=== PATIENT | male | born 2000 | race Caucasian/White ===

== ENCOUNTER 2022-05-31 16:25 | Outpatient (CLI) | payer OTHER, SELFPAY | END 2022-05-31 16:26 | disposition home or self-care (01) | LOC: NFLDREF 16:48 | PROVIDERS: PCP Family Medicine; Visit Provider Family Medicine | DX: I48.91 Unspecified atrial fibrillation (principal) | CPT/HCPCS: 84443 ==

== ENCOUNTER 2022-06-15 14:54 | Outpatient (CLI) | payer OTHER, SELFPAY | END 2022-06-15 14:55 | disposition home or self-care (01) | PROVIDERS: PCP Family Medicine; Visit Provider Family Medicine | DX: I48.91 Unspecified atrial fibrillation (principal) | CPT/HCPCS: 93306 ==

== ENCOUNTER 2024-10-17 12:53 | Outpatient (CLI) | payer OTHER, SELFPAY | END 2024-10-17 12:54 | disposition home or self-care (01) | PROVIDERS: PCP Family Medicine; Visit Provider Family Medicine | DX: I48.91 Unspecified atrial fibrillation (principal) | CPT/HCPCS: 93306 ==

== ENCOUNTER 2025-02-17 07:56 | Outpatient (CLI) | payer OTHER, SELFPAY ==
--- NOTE | 2025-02-17 09:02 | P.ANES_ITS ---
Anesthesia Charges Start Date/Time Anesthesia Start Date: 02/17/25 Anesthesia Start Time: 08:42 Stop Date/Time Anesthesia Stop Date: 02/17/25 Anesthesia Stop Time: 09:02 Coding CPT Codes CPT Codes: ANES UPR GI NDSC PX NOS - 48081 ([id number]) P2 - PATIENT W/MILD SYST DISEASE, QX - FABRICATION ENGINEER SVC W/ MD MED DIRECTION, QK - OUTSOLE ROUNDER 2-4 CNCRNT ANES PROC
--- NOTE | 2025-02-17 09:02 | W.ANESCHARGE ---
Anesthesia Charges Start Date/Time Anesthesia Start Date: 02/17/25 Anesthesia Start Time: 08:42 Stop Date/Time Anesthesia Stop Date: 02/17/25 Anesthesia Stop Time: 09:02 Coding CPT Codes CPT Codes: ANES UPR GI NDSC PX NOS - 96312 ([id number]) P2 - PATIENT W/MILD SYST DISEASE, QX - PHYSICIAN NON INVASIVE CARDIOLOGIST SVC W/ MD MED DIRECTION, QK - [place] WRAPPER MAKER 2-4 CNCRNT ANES PROC
--- NOTE | 2025-02-17 10:07 | P.ANES_ITS ---
Anesthesia Charges Start Date/Time Anesthesia Start Date: 02/17/25 Anesthesia Start Time: 08:42 Stop Date/Time Anesthesia Stop Date: 02/17/25 Anesthesia Stop Time: 09:02 Coding CPT Codes CPT Codes: ANES UPR GI NDSC PX NOS - 49006 ([id number]) P1 - NORMAL HEALTHY PATIENT, QK - STAFF SONOGRAPHER 2-4 CNCRNT ANES PROC, QX - PNEUMATIC DRUM SANDER SVLester W/ MED DIRECTION
--- NOTE | 2025-02-17 10:07 | W.ANESCHARGE ---
Anesthesia Charges Start Date/Time Anesthesia Start Date: 02/17/25 Anesthesia Start Time: 08:42 Stop Date/Time Anesthesia Stop Date: 02/17/25 Anesthesia Stop Time: 09:02 Coding CPT Codes CPT Codes: ANES UPR GI NDSC PX NOS - 30752 ([id number]) P1 - NORMAL HEALTHY PATIENT, QK - FEEDER TENDER 2-4 CNCRNT ANES PROC, QX - PBX OPERATOR SVLester W/ MED DIRECTION
== END 2025-02-17 07:57 | disposition home or self-care (01) ==
LOC: OP CLINIC 07:57
PROVIDERS: PCP Family Medicine; Visit Provider Surgery
DX: K21.00 Gastro-esophageal reflux disease with esophagitis, without bleeding (principal); R10.12 Left upper quadrant pain
CPT/HCPCS: 00731; 43239; 88305; J2704; J3490

== ENCOUNTER 2025-03-16 12:50 | Outpatient (CLI) | payer OTHER, SELFPAY ==
--- NOTE | 2025-03-16 13:00 | CRLHL7_ITS ---
For Patients: As a result of the Century Cures Act, medical imaging exams and procedure reports are released immediately into your electronic medical record. You may view this report before your referring provider. If you have questions, please contact your health care provider. Indication: Chronic sinusitis, deviated septum, loss of taste, left-side of nasal passage feels congested Technique: Noncontrast CT of the paranasal sinuses. Coronal and sagittal reformats. Bone and soft tissue algorithms. Comparison: None Findings: Frontal sinuses: Minimal mucosal thickening/secretions at the inferior left frontal sinus. Clear right frontal sinus and bilateral frontal recesses. Ethmoid air cells: Minimal mucosal thickening/secretions, left posterior ethmoid air cell, remaining ethmoid air cells grossly clear. Olfactory fossa are symmetric posteriorly, asymmetric anteriorly left significantly deeper than right. The anterior ethmoidal arteries traverse the air cells on both sides. Sphenoid sinuses: The sphenoid sinuses and sphenoethmoidal recesses are clear. No optic canal or carotid canal dehiscence. Maxillary sinuses: Tiny mucous retention cyst and minor mucosal thickening at the left maxillary sinus. Clear right maxillary sinus and bilateral ostiomeatal units. Nasal cavity: Midline nasal septum. Smooth hypertrophy of the left inferior and left middle turbinates narrowing but not obstructing the nasal airway. No nasal cavity masses. Other structures: No suspicious osseous lesions. No concerning dental disease.. Unremarkable temporomandibular joints. No abnormal mastoid or middle ear opacification. Orbits and intracranial structures are unremarkable for technique. IMPRESSION: 1. Smooth hypertrophy of the left-sided inferior and middle turbinates, narrowing but not obstructing the nasal meatus. Midline nasal septum. 2. Minimal mucosal thickening/secretions as detailed. Please note that all CT scans at this facility use dose modulation, iterative reconstruction, and/or weight-based dosing when appropriate to reduce radiation dose to as low as reasonably achievable. Dictated by Tameka Garcia MD @ 03/16/2025 1:58:44 PM (Electronically Signed)
--- OUTSIDE RECORDS SUMMARY | 2025-03-17 00:32 | XMS_ITS | Continuity of Care Document ---
Author Name [facility] Organization [facility] Care Team Providers Care Manager Government Name Role Phone [facility] Unavailable Unavailable Problems Combined list of problems from Department of Defense and Veterans Affairs facilities. It does not include entries that were removed or entered in error. Problem Status Onset Date Problem Type Date of Resolution Comments Source ATTENTION-DEFICIT HYPERACTIVITY DISORDER Active Condition [facility] feared medical condition not demonstrated Active Condition DoD decreased concentrating ability Active Condition DoD Observation For Suspected Condition Inactive Condition DoD SCOLIOSIS Active Condition DoD visit for: examination for sports competition Inactive Condition [facility] visit for: issue repeat prescription for medication Inactive Condition [facility] visit for: administrative purpose Inactive Condition [facility] Vaccines Prophylactic Need Against Influenza Inactive Condition [facility] PHARYNGITIS STREPTOCOCCUS, GROUP A: BETA HEMOLYTIC Inactive Condition [facility] ALLERGIC RHINITIS Active Condition [facility] New Patient Age 5-11 School / Camp Physical Active Condition [facility] Inquiry And Counseling: Medication Admin And Compliance Inactive Condition RECONCILED DoD XEROSIS CUTIS Active Condition [facility] Patient Counseling: Inactive Condition [facility] UPPER RESPIRATORY INFECTION Inactive Condition [facility] cough Inactive Condition DoD PHARYNGITIS ACUTE Inactive Condition ra pid strep throat is negative. informed father of result. [facility] Preventive Medicine Established Patient Checkup Child 1-4 Inactive Condition [facility] UPPER RESPIRATORY INFECTION ACUTE Inactive Condition with mild bi lat otitis - mild condition. observation and supportive care advised. return if more symptoms. [facility] fever [as symptom] Inactive Condition Do D Medications Combined list of outpatient medications from Department of Defense and Veterans Affairs facilities.Medications provided include 1) outpatient medications from the last 15 months, and 2) patient-reported medications. Medication Details Route Status Patient Instructions Prescription Expires Prescription Number Last Dispense Date Ordering Provider Order Date Order Qty Source cefuroxime 500 mg oral tablet 0 total refill(s ) Ordered 2019 No Facilit y Access methylpheni date 5 mg oral tablet methylph enidate 5 mg oral tablet Start Date: 04/08/20 Status: Ordered Repeat number: 1 Ordered 2019 No Facilit y Access methylpheni date 5 mg oral tablet methylph enidate 5 mg oral tablet Start Date: 04/15/20 Status: Ordered Repeat number: 1 Ordered 2019 No Facilit y Access methylpheni date 54 mg/24 hr oral tablet, extended release methylph enidate 54 mg/24 hr oral tablet, extended release Start Date: 04/08/20 Status: Ordered Repeat number: 1 Ordered 2019 No Facilit y Access methylpheni date 54 mg/24 hr oral tablet, extended release methylph enidate 54 mg/24 hr oral tablet, extended release Start Date: 04/15/20 Status: Ordered Repeat number: 1 Ordered 2019 No Facilit y Access methylpheni date 54 mg/24 hr oral tablet, extended release methylph enidate 54 mg/24 hr oral tablet, extended release Start Date: 12/18/19 Status: Ordered Repeat number: 1 Ordered 2019 No Facilit y Access methylpheni date 54 mg/24 hr oral tablet, extended release methylph enidate 54 mg/24 hr oral tablet, extended release Start Date: 07/15/19 Status: Ordered Repeat number: 1 Ordered 2019 No Facilit y Access METHYLPHENI DATE ER (methylphen idate HCl), 54 MG, TAB ER 24, ORAL, [employer], 100 ea. BOTTLE Active [id number] 2023 90 Pharmac y Data Transac tion Service Facilit y METHYLPHENI DATE HCL (methylphen idate HCl), 10 MG, TABLET, ORAL, [facility] [facility], 100 ea. BOTTLE Active [id number] 2023 90 Pharmac y Data Transac tion Service Facilit y METOPROLOL SUCCINATE (metoprolol succinate), 25 MG, TAB ER 24H, ORAL, [employer] [facility], 1000 ea. BOTTLE Active [id number] 4 2023 90 Pharmac y Data Transac tion Service Facilit y predniSONE 10 mg oral tablet predniSO NE 10 mg oral tablet Start Date: 04/28/20 Status: Ordered Repeat number: 1 Ordered 2019 No Facilit y Access Allergies, Adverse Reactions, Alerts Combined list of allergies from Department of Defense and Veterans Affairs facilities. It does not include entries that were removed or entered in error. Substance Category Reaction Severity Reaction type Status Date Reported Comments Source No Known Allergies Drug allergy (disorder) active 08/30/2007 [facility] Immunizations Combined list of available immunizations from the Department of Defense and Veterans Affairs facilities. Immunization Series Date Given Administered By Site Reaction Lot Number CVX Code Drug Delivery Helper Status Comments Source COVID-19, mRNA, LNP-S, PF, 100 mcg or 50 mcg dose 2020 MILENA, () Not Given COVID-19, mRNA, LNP-S, PF, 100 mcg or 50 mcg dose DoD COVID-19, mRNA, LNP-S, PF, 30 mcg/0.3 mL dose 2020 KASEY [employer] (PFR) Not Given COVID-19, mRNA, LNP-S, PF, 30 mcg/0.3 mL dose DoD Human Papillomaviru s,quadrivalen t(HPV4) 2014 Renee trimble Arm [id number] [employer] complet ed Human Papilloma virus,lizz drivalent (HPV4) 11/03/14 Given Ambulat ory Pharmac y influenza, live, intranasal,qu adrivalent 2014 [id number] [employer] comple t ed influenza , live, intranasa l,quadriv alent 11/03/14 Given Ambulat ory Pharmac y human papilloma virus vaccine, quadrivalent 1 2014 Unknown, Provider [id number] Merck (MSD) complet ed human papilloma virus vaccine, quadrival ent DoD influenza, live, intranasal, quadrivalent 1 2014 Unknown, Provider [id number] 149 [employer]. (MED) complet ed influenza , live, intranasa l, quadrival ent DoD tetanus, diphtheria, acellular pertu is 2013 TRANSCR IBED 115 GlaxoSmithKli ne complet ed tetanus, diphtheri a, acellular pertussis 10/30/13 Given Ambulat ory Pharmac y Human Papillomaviru s,quadrivalen t(HPV4) 2013 TRANSCR IBED 62 complet ed Human Papilloma virus,lizz drivalent (HPV4) 10/30/13 Given Ambulat ory Pharmac y meningococcal A,C,Y,W-135 (MCV4P) 2013 TRANSCR IBED 114 complet ed meningoco ccal A,C,Y,W-1 35 (MCV4P) 10/30/13 Given Ambulat ory Pharmac y human papilloma virus vaccine, quadrivalent 1 2013 Unknown, Provider 62 Transcribed (TRS) complet ed human papilloma virus vaccine, quadrival ent DoD meningococcal polysaccharid e (groups A, C, Y and W-135) diphtheria toxoid conjugate vaccine (MCV4P) 1 2013 Unknown, Provider 114 Transcribed (TRS) complet ed meningoco ccal polysacch aride (groups A, C, Y and W-135) diphtheri a toxoid conjugate vaccine (MCV4P) DoD tetanus toxoid, reduced diphtheria toxoid, and acellular pertu is vaccine, adsorbed 5 2013 Unknown, Provider 115 [facility] (SKB) complet ed tetanus toxoid, reduced diphtheri a toxoid, and acellular pertussis vaccine, adsorbed DoD influenza virus vaccine, live 2009 [id number] 111 [employer] comple t ed influenza virus vaccine, live 08/10/10 Given Ambulat ory Pharmac y influenza virus vaccine, live, attenuated, for intranasal use 2009 Unknown, Provider [id number] 111 [employer] (MED) complet ed influenza virus vaccine, live, attenuate d, for intranasa l use DoD Novel influenza-H1N 1-09, injectable 2009 zzLef t Arm [id number] 1 127 Novartis [employer] ls complet ed Novel influenza -[id number], injectabl e 09/27/09 Given Ambulat ory Pharmac y Novel influenza-H1N 1-09, injectable 1 2009 Unknown, Provider [id number] 1 127 Novartis Pharm[employer]ica l Francois. (NOV) complet ed Novel influenza -[id number], injectabl e DoD influenza virus vaccine,split 2008 zzRig ht Arm [id number] 15 sanofi pasteur complet ed influenza virus vaccine,s plit 09/14/09 Given Ambulat ory Pharmac y influenza virus vaccine, split virus (incl. purified surface antigen)-reti red CODE 1 2008 Unknown, Provider [id number] 15 Sanofi Pasteur ([facility]) complet ed influenza virus vaccine, split virus (incl. purified surface antigen)- retired CODE DoD Novel influenza-H1N 1-09, injectable 2008 127 complet ed Novel influenza -[id number], injectabl e 08/27/09 Given Ambulat ory Pharmac y Novel influenza-H1N 1-09, injectable 1 2008 Unknown, Provider 127 Transcribed (TRS) complet ed Novel influenza -[id number], injectabl e DoD Hep A, pediatric, unspecified formul 2008 zzLef t Thigh [id number] 31 Gl[employer]oSmithK[employer] ne complet ed Hep A, pediatric , unspecifi ed formul 11/27/08 Given Ambulat ory Pharmac y influenza virus vaccine,split 2008 zJabari ht Arm [id number] 15 sanofi pasteur complet ed influenza virus vaccine,s plit 11/27/08 Given Ambulat ory Pharmac y influenza virus vaccine, split virus (incl. purified surface antigen)-reti red CODE 1 2008 Unknown, Provider [id number] 15 Sanofi Pasteur (PMC) complet ed influenza virus vaccine, split virus (incl. purified surface antigen)- retired CODE DoD hepatitis A vaccine, pediatric dosage, unspecified formulation 2 2008 Unknown, Provider [id number] 31 [employer] (SKB) complet ed hepatitis A vaccine, pediatric dosage, unspecifi ed formulati on DoD DTaP-poliovir us vaccine, inactivated 2008 zzLef t Arm [id number] 130 GlaxoSmithKli ne complet ed DTaP-sukhwinder ovirus vaccine, inactivat ed 10/06/08 Given Ambulat ory Pharmac y varicella virus vaccine 2008 zzLef t Arm [id number] 21 Merck & Company Inc complet ed varicella virus vaccine 10/06/08 Given Ambulat ory Pharmac y influenza virus vaccine, live 2008 [id number] 111 [employer] comple t ed influenza virus vaccine, live 10/06/08 Given Ambulat ory Pharmac y measles/mumps /rubella virus vaccine 2008 zzRig ht Arm [id number] 03 Merck & Company Inc complet ed measles/m umps/rube lla virus vaccine 10/06/08 Given Ambulat ory Pharmac y tuberculin purified protein derivative 2008 zzLef t Arm [id number] 96 sanofi pasteur complet ed Patient Tolerance : Negative Ambulat ory Pharmac y measles, mumps and rubella virus vaccine 2 2008 Unknown, Provider [id number] 03 Merck (MSD) complet ed measles, mumps and rubella virus vaccine DoD varicella virus vaccine 2 2008 Unknown, Provider [id number] 21 Merck (MSD) complet ed varicella virus vaccine DoD tuberculin skin test; purified protein derivative solution, intradermal 1 2008 Unknown, Provider [id number] 96 Sanofi Pasteur (PMC) complet ed tuberculi n skin test; purified protein derivativ e solution, intraderm al DoD influenza virus vaccine, live, attenuated, for intranasal use 1 2008 Unknown, Provider [id number] 111 [employer]. (MED) complet ed influenza virus vaccine, live, attenuate d, for intranasa l use DoD Diphtheria, tetanus toxoids and acellular pertu is vaccine, and poliovirus vaccine, inactivated 5 2008 Unknown, Provider [id number] 130 [facility] ([facility] complet ed Diphtheri a, tetanus toxoids and acellular pertussis vaccine, and polioviru s vaccine, inactivat ed DoD Hep A, pediatric, unspecified formul 2005 zzRig ht Thigh [id number] 31 Gl[employer]SmithK[employer] complet ed Hep A, pediatric , unspecifi ed formul 04/18/06 Given Ambulat ory Pharmac y hepatitis A vaccine, pediatric dosage, unspecified formulation 1 2005 Unknown, Provider [id number] 31 [employer] ([place]B) complet ed hepatitis A vaccine, pediatric dosage, unspecifi ed formulati on DoD DTaP 2003 zzLef t Arm [id number] 20 Gl[employer]SmithK[employer] complet ed DTaP 04/27/04 Given Ambulat ory Pharmac y diphtheria, tetanus toxoids and acellular pertu is vaccine 4 2003 Unknown, Provider [id number] 20 [employer] ([place]B) complet ed diphtheri a, tetanus toxoids and acellular pertussis vaccine DoD influenza virus vaccine,split 2003 zzRig ht Thigh [id number] 15 sanofi pasteur complet ed influenza virus vaccine,s plit 10/30/03 Given Ambulat ory Pharmac y haemophilus b-hepatitis B vaccine 2003 zzRig ht Thigh [id number] 51 Merck & Company Inc complet ed haemophil us b-hepatit is B vaccine 10/30/03 Given Ambulat ory Pharmac y varicella virus vaccine 2003 zzLef t Thigh [id number] 21 Merck & [employer] Inc complet ed varicella virus vaccine 10/30/03 Given Ambulat ory Pharmac y measles/mumps /rubella virus vaccine 2003 zzLef t Thigh [id number] 03 Merck & [employer] Inc complet ed measles/m umps/rube lla virus vaccine 10/30/03 Given Ambulat ory Pharmac y measles, mumps and rubella virus vaccine 1 2003 Unknown, Provider [id number] 03 Merck (MSD) complet ed measles, mumps and rubella virus vaccine DoD influenza virus vaccine, split virus (incl. purified surface antigen)-reti red CODE 1 2003 Unknown, Provider [id number] 15 Sanofi Pasteur ([facility]) complet ed influenza virus vaccine, split virus (incl. purified surface antigen)- retired CODE DoD varicella virus vaccine 1 2003 Unknown, Provider [id number] 21 Merck (MSD) complet ed varicella virus vaccine DoD Haemophilus influenzae type b conjugate and Hepatitis B vaccine 1 2003 Unknown, Provider [id number] 51 Merck (MSD) complet ed Haemophil us influenza e type b conjugate and Hepatitis B vaccine DoD pneumococcal 7-valent vaccine 2002 zzLef t Arm [id number] 100 [employer] complet ed pneumococ beltran 7-valent vaccine 07/10/03 Given Ambulat ory Pharmac y pneumococcal conjugate vaccine, 7 valent 3 2002 Unknown, Provider [id number] 100 VaalessioRafael ([facility]) complet ed pneumococ beltran conjugate vaccine, 7 valent DoD DTaP 2002 zzLef t Thigh [id number] 20 sanofi pasteur complet ed DTaP 04/22/03 Given Ambulat ory Pharmac y poliovirus vaccine, inactivated 2002 zzLef t Arm [id number] 10 sanofi pasteur complet ed polioviru s vaccine, inactivat ed 04/22/03 Given Ambulat ory Pharmac y pneumococcal 7-valent vaccine 2002 zzLef t Arm [id number] 100 [employer] complet ed pneumococ beltran 7-valent vaccine 04/22/03 Given Ambulat ory Pharmac y poliovirus vaccine, inactivated 1 2002 Unknown, Provider [id number] 10 Sanofi Pasteur ([facility]) complet ed polioviru s vaccine, inactivat ed DoD diphtheria, tetanus toxoids and acellular pertu is vaccine 3 2002 Unknown, Provider [id number] 20 Sanofi Pasteur (PMC) complet ed diphtheri a, tetanus toxoids and acellular pertussis vaccine DoD pneumococcal conjugate vaccine, 7 valent 2 2002 Unknown, Provider [id number] 100 Abelardo ([facility]) complet ed pneumococ beltran conjugate vaccine, 7 valent DoD haemophilus b-hepatitis B vaccine 2002 zRig Thigh [id number] 51 Merck & Company Inc complet ed haemophil us b-hepatit is B vaccine 02/25/03 Given Ambulat ory Pharmac y poliovirus vaccine, inactivated 2002 zzLef t Thigh [id number] 10 sanofi pasteur complet ed polioviru s vaccine, inactivat ed 02/25/03 Given Ambulat ory Pharmac y pneumococcal 7-valent vaccine [facility] [id number] complet ed pneumococ beltran 7-valent vaccine 02/25/03 Given Ambulat ory Pharmac y [facility]P [facility] [id number] 20 sanofi pasteur complet ed DTaP 02/25/03 Given Ambulat ory Pharmac y poliovirus vaccine, inactivated 1 2002 Unknown, Provider [id number] 10 Sanofi Pasteur (PMC) complet ed polioviru s vaccine, inactivat ed DoD diphtheria, tetanus toxoids and acellular pertu is vaccine 2 2002 Unknown, Provider [id number] 20 Sanofi Pasteur (PMC) complet ed diphtheri a, tetanus toxoids and acellular pertussis vaccine DoD Haemophilus influenzae type b conjugate and Hepatitis B vaccine 1 2002 Unknown, Provider [id number] 51 Merck (MSD) complet ed Haemophil us influenza e type b conjugate and Hepatitis B vaccine DoD pneumococcal conjugate vaccine, 7 valent 1 2002 Unknown, Provider [id number] 100 Abelardo ([facility]) complet ed pneumococ beltran conjugate vaccine, 7 valent DoD haemophilus b-hepatitis B vaccine 2002 zzLef t Arm [id number] 51 Merck & Company Inc complet ed haemophil us b-hepatit is B vaccine 02 Given Ambulat ory Pharmac y poliovirus vaccine, inactivated 2002 zzLef t Arm [id number] 10 sanofi pasteur complet ed polioviru s vaccine, inactivat ed 02 Given Ambulat ory Pharmac y DTaP 2002 zzLef t Thigh [id number] 20 GlaxoSmithKli ne complet ed DTaP 02 Given Ambulat ory Pharmac y poliovirus vaccine, inactivated 1 2002 Unknown, Provider [id number] 10 Sanofi Pasteur (PMC) complet ed polioviru s vaccine, inactivat ed DoD diphtheria, tetanus toxoids and acellular pertu is vaccine 1 2002 Unknown, Provider [id number] 20 [employer]Kline ([facility]) complet ed diphtheri a, tetanus toxoids and acellular pertussis vaccine DoD Haemophilus influenzae type b conjugate and Hepatitis B vaccine 1 2002 Unknown, Provider [id number] 51 Merck (MSD) complet ed Haemophil us influenza e type b conjugate and Hepatitis B vaccine DoD Encounters Combined list of: 1) Encounters from Department of Veterans Affairs facilities going backup to the last 18 months, not all [place] inpatient encounters are included; 2) Encounters from the Department of Defense facilities going backup to 280 months. Location Location Details Encounter Type Encounter Number Reason For Visit Attending Provider ADM Date DC Date Status Disposition Source [facility] Pediatric s) OUTPATIENT [id number] cold,co ugh JESSICA SOSA 09/19 Released w/o Limitations [facility] Ped[facility] ics) [facility] Pediatric s) OUTPATIENT [id number] well child JESSICA SOSA 11/30 Released w/o Limitations [facility] Pediatr ics) Mejia Varela [facility] [place] [employer]) OUTPATIENT [id number] new pt to area. cough x 2 weeks with on and off fevers. ROSALBA LIMON 03/29 Released w/o Limitations Mejia Cavazos [facility]( Pediatr ics [employer] ) Mejia Varela [facility] [place] [employer]) OUTPATIENT [id number] sore throat/ cough x1wk;fe shen this am;give n Tyl;mom wants child seen ASHLEY OZUNA 10/01 Released w/o Limitations Mejia Cavazos [facility]( Pediatr ics [place] [employer] ) Mejia AndersFormerly [facility] [place] [facility]) OUTPATIENT [id number] WELL CK ELISSA FLOYD 11/23 Released w/o Limitations [facility] [place] [facility] Mejia Martinez[place] [facility] diatrics [employer]) OUTPATIENT [id number] dry skin ASHLEY OZUNA 07/23 Released w/o Limitations [facility] [place] [facility] [place]) OUTPATIENT [id number] school physica suzanne [facility] 10/06 Released w/o Limitations [place] [id number] fever t103; sore throat SONU LUGO [facility] 03/23 Released w/o Limitations [place]) [place] [id number] allergJAIMIE Gil 09/14 Released w/[place] Limitations [place] TELE CONSULT [id number] Home Care LAURITA HARGROVE 11/23 [place] [id number] consult tonsil stones RAJINDER GIPSON 11/30 Released w/o Limitations [place]LE CONSULT [id number] pcm Merrick: pe MOP, pt is sick and req apt but refused urgent care..r eq nurse call LAURITA HARGROVE 03/02 Referred for Appointment [place]) [place] [id number] cough BRITTNEY [facility] 03/09 Released w/o Limitations [place] TELE CONSULT [id number] MOP req refill on son's medicia tion of alisson n. [phone] LAURITA HARGROVE 05/24 [place]erred for Appointment [place] [facility] [place] [facility]) OUTPATIENT [id number] sports/ physica l ROGERSJANY RASHID S 08/10 Released w/o Limitations [place]) [place] [id number] jennifero you hawley ent JANY ROGERS S 09/08 Released w/o Limitations [place]) OUTPATIENT [id number] Observa tion For Suspect ed Conditi on ASHLEE BAZAN S 10/03 Released w/o Limitations [place] TELE CONSULT [id number] Review of Vanderb ilt and Psychoe ducatio nal testing ASHLEE BAZAN S 10/29 [place]) OUTPATIENT [id number] KILO SMITH 11/04 Released w/o Limitations [place] OUTPATIENT [id number] ADHD Medicat ion ASHLEE BAZAN S 11/04 Released w/o Limitations [place]) OUTPATIENT [id number] F/U ASHLEE BAZAN S 11/18 Released w/o Limitations [place] TELE CONSULT [id number] MOP CALLED ABOUT MEDS AND WOULD LIKE TO KEEP AT SAME Mg, ALSO NEEDING REFILL ASHLEE BAZAN 11/29 [place] TELE CONSULT [id number] mop needing to be seen before pcs on , please ASHLEE Nagy 01/30 [facility] [facility] [facility] Cl[facility]) [facility] [place] [facility]) OUTPATIENT [id number] F/U ASHLEE BAZAN 02/09 Released w/o Limitations [place] [facility] Cl[place] [facility](Ped [facility]) OUTPATIENT [id number] f/u ADHD MICH GREEN R 04/03 Released w/o Limitations [facility](P ediatri cs Clinic) [facility](Ped iatrics Clinic) OUTPATIENT [id number] f/u ADHD [facility] GRE[facility] R 06/01 Released w/o Limitations [facility](P ediatri cs Clinic) [facility](Ped iatrics Clinic) TELE CONSULT [id number] Notes Entered by: An RICKS 14 Jul 2014 1454 ------- ------- ------- ------- -- Refill Request SIENNA SOLIS 07/14 Referred for Appointment [facility]P ediat[facility] Clinic) [facility](Ped iatrics Clinic) OUTPATIENT [id number] F/U ADHD MEDS M[facility] GREEN R 10/08 Released w/o Limitations [facility](P ediatri cs Clinic) [facility](Ped iatrics Clinic) OUTPATIENT [id number] skin issues BETTIE NEAL 11/02 Released w/o Limitations [facility](P ediatri cs Clinic) [facility]) OUTPATIENT [id number] SARAH Pineda 11/04 Released w/o Limitations [facility](D ermatol ogy Clinic) Procedures Combined list of: 1) Procedures from Department of Veterans Affairs facilities going back up to thelast 18 months, not all VA non-surgical procedures are included; 2) All procedures from the Department of Defense facilities. Procedure Procedure Type Code Date Perfomer Comments Sourc e No data available for this section Ambulato ry Pharmacy Patient Counseling Medical Management Individual Patient Patient Counseling Medical Management Individual Patient [id number] ASHLEE BOYER [facility] Psychiatric Therapy Counseling Family / Guardians Psychiatric Therapy Counseling Family / Guardians [phone] KILO SMITH [facility] Influenza Virus Vaccine Live Intranasal 010 CLAUDE LENTZ 0.2 ml given intranasal spray [facility] Immunization Admin By Intranasal / Oral Route One Vaccine Immunization Admin By Intranasal / Oral Route One Vaccine [id number] CLAUDE LENTZ pt tolerated well; no adverse reactions; pt teaching done and handout given; no other concerns noted. [facility] Influenza Split Virus Vaccine Age 3+ Years Intramuscular 009 JAIMIE LAU [facility] Immunization Administration Under Age 8, One Vaccine Immunization Administration Under Age 8, One Vaccine [id number] JAIMIE LAU [facility] Vaccines Viral Polio, Inactivated (Salk) Vaccines Viral Polio, Inactivated (Salk) 19874 [facility] DTaP Vaccine DTaP Vaccine 78771 [facility] Vaccines Viral Varicella (Active) Vaccines Viral Varicella (Active) 87008 [facility] Vaccines Viral Measles, Mumps and Rubella, Live Vaccines Viral Measles, Mumps and Rubella, Live 28371 [facility] Influenza Split Virus Vaccine Age 6-35 Months Intramuscular [facility] Immunization Admin By Intranasal / Oral Route One Vaccine Immunization Admin By Intranasal / Oral Route One Vaccine 21517 [facility] Immunization Admin Under Age 8, Each Additional Vaccine Immunization Admin Under Age 8, Each Additional Vaccine 37234 [facility] Immunization Administration Under Age 8, One Vaccine Immunization Administration Under Age 8, One Vaccine 03331 [facility] Developmental Testing Limited With Interpretation and Report 007 ELISSA FLOYD [facility] NONINVASIVE EAR OR PULSE OXIMETRY FOR OXYGEN SATURATION; SINGLE DETERMINATION 005 [facility] DIPHTHERIA, TETANUS TOXOIDS, AND ACELLULAR PERTUSSIS VACCINE (DTAP), WHEN ADMINISTERED TO INDIVIDUALS YOUNGER THAN 7 YEARS, FOR INTRAMUSCULAR USE 004 [facility] HANDLING AND/OR CONVEYANCE OF SPECIMEN FOR TRANSFER FROM THE OFFICE TO A LABORATORY 04/08/25 [facility] VARICELLA VIRUS VACCINE (MARI), LIVE, FOR SUBCUTANEOUS USE [facility] EDUCATION &TRAINING, PATIENT SELF-MGT QUALIFIED, 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 USING STDIZED CURRICULUM, LUCL-TH-CNDD W THE PATIENT (COULD INCL CAREGIVER/FAMILY) EA 30 MIN; INDIVIDUAL PATIENT [facility] INTERPRETATION OR EXPLANATION OF RESULTS OF PSYCHIATRIC, OTH MEDICAL EXAMS/PROCEDURES, OR OTH ACCUMULATED DATA TO FAMILY OR OTH RESPONSIBLE PERSONS,OR ADVISING THEM HOW TO ASSIST PATIENT [facility] IMMUNIZATION ADMINISTRATION BY INTRANASAL OR ORAL ROUTE; 1 VACCINE (SINGLE OR COMBINATION VACCINE/TOXOID) [facility] INFLUENZA VIRUS VACCINE, TRIVALENT (IIV3), SPLIT VIRUS, 0.5 ML DOSAGE, FOR INTRAMUSCULAR USE [facility] DIPHTHERIA, TETANUS TOXOIDS, AND ACELLULAR PERTUSSIS VACCINE (DTAP), WHEN ADMINISTERED TO INDIVIDUALS YOUNGER THAN 7 YEARS, FOR INTRAMUSCULAR USE [facility] DEVELOPMENTAL SCREENING (EG, DEVELOPMENTAL MILESTONE SURVEY, SPEECH AND LANGUAGE DELAY SCREEN), WITH SCORING AND DOCUMENTATION, PER STANDARDIZED INSTRUMENT [facility] Social History Combined list of available smoking, tobacco, and other social history from Department of Defense and Veterans Affairs facilities. Social History Type Response Date Comment Sour e Sex Representation Male (finding) 06/04/2020 Un known Organization Sexual Orientation Ambula tory Pharmacy Gender identity Ambulator y Pharm[facility] This section is an empty social history section. [facility] Assessment and Plan Combined list of future care activities from Department of Defense and Veterans Affairs facilities (e.g., assessment and plan notes, appointments, orders, and referrals). Additional future care activities may be listed in the Plan of Care section. Result Assessment and Plan Date Source Assessment and Plan No data available for this section 03/17/2025 Ambulatory [facility]acy Functional Status Combined list of recent functional and cognitive assessments recorded at [facility] Defense and [facility] ([facility] Functional [place] Measurement (FIM) Scale: 1 = Total Assistance (Subject = 0% +), 2 = Maximal Assistance (Subject = 25% +), 3 = Moderate Assistance (Subject = 50% +), 4 = Minimal Assistance (Subject = 75% +), 5 = Supervision, 6 = Modified [place] (Device), 7 = Complete [place] (Timely, Safely). Assessment Date/Time Source Assessment Type Assessment Skill Assessment Score Assessment Details No data available for this section
--- OUTSIDE RECORDS SUMMARY | 2025-03-17 00:36 | XMS_ITS | Clinical Summary ---
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 Information/instructio n from Last 3 Months Social History Tobacco Use Types Packs/Day Years Used Date Smoking Tobacco: Never Smokeless Tobacco: Never Alcohol Use Standard Drinks/Week Comments Not Currently 0 (1 standard drink = 0.6 oz pur e alcohol) Adolescent Education Answer Date Record ed Getting School Help Needed Not on file 06/16 Sex and Gender Information Value Date Recorded Sex Assigned at Not on file Legal Sex Male 9:40 PM CDT Gender Identity Not on file Sexual Orientation Not on file Last Filed Vital Signs Vital Sign Reading Time Taken Comments Blood Pressure 118/78 06/02/2022 10:25 AM CDT Pulse 107 06/02/2022 10:25 AM CDT Temperature 36.3 C (97.4 F) 06/02/2022 10:25 AM CDT Respiratory Rate 12 05/27/2022 6:30 PM CDT Oxygen Saturation 98% 06/02/2022 10:25 AM CDT Inhaled Oxygen Concentration - - Weight 79.4 kg (175 lb) 06/02/2022 10:25 AM CDT Height 172.7 cm (5' 8) 05/27/2022 3:30 PM CDT Body Mass Index 26.61 05/27/2022 3:30 PM CDT Plan of Treatment Health Maintenance Due Date Last Done Comments ADVANCE CARE PLANNING 2002 ANNUAL REVIEW OF HM ORDERS 2002 YEARLY PREVENTIVE VISIT 2005 HIV SCREENING 2017 HEPATITIS C SCREENING 2020 BMP 05/27/2023 05/27/2022 DTAP/TDAP/TD VACCINE (7 - Td or Tdap) 10/30/2023 10/30/2013, 10/06/2008, 04/27/2004, Additional history exists COVID-19 VACCINE ( season) 2024 PHQ-2 (once per calendar year) 2024 INFLUENZA VACCINE (Season Ended) 2025 06/16/2021, 05/26/2020 ZOSTER VACCINE (1 of 2) 2052 PNEUMOCOCCAL VACCINE: PEDIATRICS (0 to 5 YEARS) AND AT-RISK PATIENTS (6 to 49 YEARS) Aged Out 07/10/2003, 04/22/2003, 02/25/2003 No longer eligible based on patient's age to complete this topic HEPATITIS B VACCINE Completed 10/30/2003, 02/25/2003, 2002 HPV VACCINE Completed 03/17/2015, 10/25, 10/30/2013 MENINGITIS VACCINE Completed 05/14/2019 MENINGITIS B VACCINE Completed 05/26/2020, 05/14/20 19 Procedures Procedure Name Priority Date/Time Associated Diagnosis Comments BASIC METABOLIC PANEL STAT 05/27/2022 3:32 PM CDT from Last 3 Months or Most Recently Relevant to Health Maintenance Results * Basic metabolic panel (BMP) (05/27/2022 3:32 PM CDT) Creatinine 0.90 0.67 - 1.17 mg/dL 05/27/2022 4:03 PM CDT [facility] Sodium 142 136 - 145 mmol/L 05/27/2022 4:03 PM CDT [facility] Potassium 4.2 3.4 - 5.3 mmol/L 05/27/2022 4:03 PM CDT [facility] Urea Nitrogen 18.5 6.0 - 20.0 mg/dL 05/27/2022 4:03 PM CDT [facility] Chloride 105 98 - 107 mmol/L 05/27/2022 4:03 PM CDT [facility] Carbon Dioxide (CO2) 28 22 - 29 mmol/L 05/27/2022 4:03 PM CDT [facility] Anion Gap 9 7 - 15 mmol/L 05/27/2022 4:03 PM CDT [facility] Glucose 93 70 - 99 mg/dL 05/27/2022 4:03 PM CDT [facility] GFR Estimate >90 >60 mL/min/1.7 3m2 05/27/2022 4:03 PM CDT [facility] Comment:Effective August 252020 eGFRcr in adults is calculated using the 2020 CKD-EPI creatinine equation which includes age and gender (Leann et al., NEJM, DOI: 10.1056/WUOYmy5925491) Calcium 9.9 8.6 - 10.0 mg/dL 05/27/2022 4:03 PM [facility] Blood BLOOD SPECIMEN / Unknown Venipuncture / Unknown 05/27/2022 3:32 PM CDT 05/27/2022 3:40 PM CDT us Carlos Aguilar MD LAB - BLOOD ORDERABLES F inal Result [facility] [address] Lab (1st floor, no room number) [place] [address], [facility] [phone] from Last 3 Months or Most Recently Relevant to Health Maintenance Insurance [facility] Care Teams Mica Plate Layer Hand Relationship Specialty Start Date End Date Nilesh Aguirre MD PCP - General Family Medicine 04/04/22
--- OUTSIDE RECORDS SUMMARY | 2025-03-17 00:36 | XMS_ITS | Encounter Summary ---
Author Organization [facility] Address [address] [place] [address] Care Team Providers Care Engine Inspector Name Role Phone Nilesh Aguirre MD Primary Care Provider [phone] Reason for Visit * Reason Onset Date Comments Pt. Information/instruction 02/16/2025 Encounter Details Date Type Department Care Team (Late st Contact Info) Description 02/16/2025 Telephone [facility] [place] [address] Iza Blair RN Pt. Information/instructio n Social History Tobacco Use Types Packs/Day Years [...] on file Sexual Orientation Not on file documented as of this encounter Miscellaneous Notes * Telephone Encounter - Iza Blair RN - 02/16/2025 4:28 PM CDT Patient is scheduled for an Endoscopy tomorrow morning and wanted to know if he should take his medication. Recommend patient call [facility] department tomorrow morning, phone number givento ask them. Patient doesn't take his medications until 10 am and procedure is scheduled at 9 am. Patient verbalized understanding information. documented in this encounter Plan of Treatment Not on file documented as of this encounter Visit Diagnoses Not on filedocumented in this encounter Care Teams Engine Inspector Relationship Specialty Start Date End Date Nilesh Aguirre MD PCP - General Family Medicine 04/04/22 documented as of this encounter
--- OUTSIDE RECORDS SUMMARY | 2025-03-17 00:36 | XMS_ITS | Clinical Summary ---
Author Organization [facility] Address [address] [place] [address] Care Team Providers Care Multimedia Engineer Name Role Phone Nilesh Aguirre MD Primary Care Provider [phone] Allergies No known active allergies Medications fexofenadine (STONEY) 180 mg tablet Take 180 mg by mouth once daily. Active methylphenidate HCl 54 mg Extended-Release tablet Take 54 mg by mouth once daily. 06/07/2022 Active methylphenidate HCl (RITALIN) 10 mg tablet Take 10 mg by mouth one time if needed. 06/07/2022 Active melatonin 5 mg capsule Take 1 Capsule (5 mg) by mouth once daily. 0 06/22/2022 Active rx hydrOXYzine HCl (VISTARIL) 25 mg tablet/capsule (ED DC MED) Take 1 Tablet (25 mg) by mouth every 6 hours if needed. 4 Tablet 11/15/2022 Active pyridoxine, vitamin B6, (Vitamin B-6) 25 mg tablet Take 1 Tablet (25 mg) by mouth once daily. 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 Encounters Date Type Department Care Team Description 02/18/2025 Lab Requisition [facility] [phone] Judith Laguna MD from Last 3 Months Social History Tobacco Use Types Packs/Day Years Used Date Smoking Tobacco: Never Smokeless Tobacco: Never Alcohol Use Standard Drinks/Week Comments Never 0 (1 standard drink = 0.6 oz pur e alcohol) Social Connections Answer Date Recorded Frequency of Communication with Friends and Fami ly Not on file 12/30/2021 Sex and Gender Information Value Date Recorded Sex Assigned at Not on file Legal Sex Male 9:54 AM CDT Gender Identity Not on file Sexual Orientation Not on file Obstetrics History Last Filed Vital Signs Vital Sign Reading Time Taken Comments Blood Pressure 139/94 09/15/2022 7:35 AM LEADERSHIP DEVELOPMENT INSTRUCTOR Pulse 104 09/15/2022 7:35 AM LEADERSHIP DEVELOPMENT INSTRUCTOR Temperature - - Respiratory Rate 16 09/15/2022 7:35 AM LEADERSHIP DEVELOPMENT INSTRUCTOR Oxygen Saturation 97% 09/15/2022 7:35 AM LEADERSHIP DEVELOPMENT INSTRUCTOR Inhaled Oxygen Concentration - - Weight 73.5 kg (162 lb) 09/15/2022 7:34 AM LEADERSHIP DEVELOPMENT INSTRUCTOR Height 175.3 cm (5' 9) 09/15/2022 7:34 AM LEADERSHIP DEVELOPMENT INSTRUCTOR Body Mass Index 23.92 09/15/2022 7:34 AM LEADERSHIP DEVELOPMENT INSTRUCTOR Plan of Treatment Health Maintenance Due Date Last Done Comments Tdap 2013 Depression screening for age 12+ 2014 HIV for age 15-65 2017 HPV series for age 9-26 (1 - Male 3-dose series) 2017 Hepatitis C screening for age 18-79 2020 Hepatitis B series for 19+ ( 1 of 3 - 19+ 3-dose series) 2021 Pneumococcal series for age 6-49 (1 of 2 - PCV) 2021 Tetanus booster 2022 BMI (ht and wt on same day) for age 18+ 07/27/2023 1 09/26/2021, 12/30/2021 COVID-19 vaccine series ( - season) 2024 Influenza Vaccine (Season Ended) 2025 Procedures Procedure Name Priority Date/Time Associated Diagnosis Comments LAB TRACKING EVENT Routine 02/17/2025 8: 50 AM CDT PATH TISSUE EXAM Routine 02/17/2025 8:50 AM CDT from Last 3 Months Results * LAB TRACKING EVENT (02/17/2025 8:50 AM CDT) Other (Other) Client Collect / Unknown 02/17/2025 8:50 AM CDT 02/18/2025 6:36 AM CDT Judith Laguna MD LAB BILL ONLY Final Resu lt [facility] [address] [place] [address], * PATH TISSUE EXAM (02/17/2025 8:50 AM CDT) Case Report Pathology Report Case: [id number] Authorizing Provider: Judith Laguna MD Collected: 02/17/2025 0850 Ordering Location: [facility] Received: 02/18/2025 1415 Pathologist: Arcadio Woods MD Specimens: A) - Duodenum Biopsy B) - Stomach Biopsy C) - Distal Esophagus Biopsy D) - Distal Esophagus Biopsy E) - Mid Esophagus Biopsy 02/20/2025 8:54 AM CDT [facility] Final Diagnosis A) DUODENUM, BIOPSY: 1. Normal duodenal mucosa 2. Negative for celiac disease and other enteropathy B) STOMACH, BIOPSY: 1. Gastric antral and body mucosae with no diagnostic abnormalities 2. Negative for Helicobacter C) ESOPHAGUS, DISTAL, BIOPSY: 1. Inflammatory changes consistent with reflux esophagitis 2. Negative for eosinophilic esophagitis 3. Negative for columnar mucosa D) ESOPHAGUS, DISTAL, BIOPSY: 1. Normal esophageal squamous mucosa 2. Negative for reflux changes and eosinophilic esophagitis 3. Negative for columnar mucosa E) ESOPHAGUS, MID, BIOPSY: 1. Normal esophageal squamous mucosa 2. Negative for reflux changes and eosinophilic esophagitis 3. Negative for columnar mucosa 02/20/2025 8:54 AM CDT [facility] at 0854 CDT Clinical Information Esophageal reflux. Abdominal pain. Upper GI endoscopy showed no mucosal abnormalities except for variable Z-line. 02/20/2025 8:54 AM CDT [facility] Gross Description A) Received in formalin are 4 hawkins mucosal fragments averaging 3 mm in greatest dimension, which are entirely submitted in one cassette. It is labeled with the patient's name and designated duodenum. B) Received in formalin are 4 hawkins mucosal fragments ranging from 2 mm to 5 mm in greatest dimension, which are entirely submitted in one cassette. It is labeled with the patient's name and designated stomach, random. C) Received in formalin are 5 hawkins mucosal fragments averaging 2 mm in greatest dimension, which are entirely submitted in one cassette. It is labeled with the patient's name and designated distal esophagus. D) Received in formalin are 4 hawkins mucosal fragments averaging 3 mm in greatest dimension, which are entirely submitted in one cassette. It is labeled with the patient's name and designated specimen 4 distal esophagus. E) Received in formalin are 4 hawkins mucosal fragments averaging 2 mm in greatest dimension, which are entirely submitted in one cassette. It is labeled with the patient's name and designated esophagus, mid. Lorettasushma Almonte 02/18/2025 2:22 PM 02/20/2025 8:54 AM CDT [facility] Microscopic Description The final diagnosis is based on microscopic examination of appropriate sections of all specimens. 02/20/2025 8:54 AM CDT [facility] Additional Information Interpreted at [facility], Central Laboratory - [address] [place] [address] [facility] [address] [address] 02/20/2025 8:54 AM CDT [facility] Other (Duodenum Biopsy) 02/17/2025 8:50 AM CDT 02/18/2025 2:15 PM CDT Specimen (specimen) (Stomach Biopsy) 02/17/2025 8:50 AM CDT 02/18/2025 2:15 PM CDT Specimen (specimen) (Distal Esophagus Biopsy) 02/17/2025 8:50 AM CDT 02/18/2025 2:15 PM CDT Specimen (specimen) (Distal Esophagus Biopsy) 02/17/2025 8:50 AM CDT 02/18/2025 2:15 PM CDT Specimen (specimen) (Mid Esophagus Biopsy) 02/17/2025 8:50 AM CDT 02/18/2025 2:15 PM CDT Judith Laguna MD PATHOLOGY/CYTOLOGY Final R esult [facility] [address] [place] [address], [place] from Last 3 Months Insurance [employer] [place] [id number] [employer] Care Teams Multimedia Engineer Relationship Specialty Start Date End Date Nilesh Aguirre MD [address] [place] [phone] PCP - General Family Practice 06/15/22
--- OUTSIDE RECORDS SUMMARY | 2025-03-17 00:36 | XMS_ITS | Clinical Summary ---
Author Organization [facility] Address [address], [place] [address] Care Team Providers Care Business Operations Analyst Name Role Phone Unavailable Primary Care Provider Unavailabl e Source Comments You are receiving this document as you are listed as the primary care provider,follow-up provider, or the patient has been referred to you for consultation.This is in compliance with the Medicare and[employer] EHR Incentive Program,which states Providers who transition their patient to another setting of careor provider of care or refers their patient to another provider of care shouldprovide summary care record for each transition of care or referral. [facility] Allergies No known active allergies Medications methylphenidate (CONCERTA) 54 MG controlled release tablet Take 54 mg by mouth daily. 02/22/2022 Active fexofenadine (STONEY) 180 MG tablet Take 180 mg by mouth daily as needed. Active Active Problems No known active problems Social History Tobacco Use Types Packs/Day Years Used Date Smoking Tobacco: Never Smokeless Tobacco: Never Tobacco Cessation:Counseling Given: Not Answered Sex and Gender Information Value Date Recorded Sex Assigned at Not on file Legal Sex Male 10:36 AM CDT Gender Identity Not on file Sexual Orientation Not on file Last Filed Vital Signs Vital Sign Reading Time Taken Comments Blood Pressure 123/68 04/14/2022 8:16 AM CDT Pulse 92 04/14/2022 8:16 AM CDT Temperature 36.9 C (98.4 F) 04/14/2022 8:16 AM CDT Respiratory Rate 16 04/14/2022 8:16 AM CDT Oxygen Saturation 97% 04/14/2022 8:16 AM CDT Inhaled Oxygen Concentration - - Weight - - Height - - Body Mass Index - - Plan of Treatment Health Maintenance Due Date Last Done Comments Hep C Screening (Preventive Services) 2002 MenB Immunization Discussion 2002 HIV Screening (Preventive Services) 2018 Adult Preventive Visit 2020 HepB Vaccine (1) 2021 DTaP/Tdap/Td Vaccine (7 - Tdap) 10/30/2023 10/30/2013, 10/06/2008, 04/27/2004, Additional history exists COVID-19 Vaccine ( - 2023- season) 2024 Influenza Vaccine (Season Ended) 2025 06/16/2021, 05/26/2020 Zoster/Shingles Vaccine (1 of 2) 2052 Pneumococcal Vaccine Aged Out 07/10/2003, 04/22/2003, 02/25/2003 No longer eligible based on patient's age to complete this topic IPV (Polio) Vaccine Completed 10/06/2008, 04/22/2003, 02/25/2003, Additional history exists HepA Vaccine Completed 11/27/2008, 04/18/2006 HPV Vaccine Completed 03/17/2015, 10/25, 10/30/2013 MCV4 Vaccine Completed 05/14/2019 Hib Vaccine Aged Out No longer eligi ble based on patient's age to complete this topic [place] [address] [place] [address]
== END 2025-03-16 12:51 | disposition home or self-care (01) ==
LOC: CT 12:51
PROVIDERS: PCP Family Medicine; Visit Provider Otolaryngology
DX: J32.9 Chronic sinusitis, unspecified (principal); J34.2 Deviated nasal septum
CPT/HCPCS: 70486

== ENCOUNTER 2025-04-17 11:20 | Day surgery (SDC) | payer OTHER, SELFPAY ==
[2025-04-17] VITALS (13 sets, daily range): BP systolic 107–137; BP diastolic 63–98; PULSE 54–75; RESP 14–19; TEMP 36.4–36.9; O2SAT 97–100; BMI 28.0
[2025-04-17] MEDS: LACTATED RINGERS 500 ML 500 ML 100 ML IV (12:30)
[2025-04-17] MEDS: OXYMETAZOLINE 0.05% NASAL SPRAY 2 SPRAY NOSTRIL-B (12:51)
[2025-04-17] MEDS: AYR SALINE NASAL GEL 1 APPLIC NOSTRIL-B (13:16)
[2025-04-17] MEDS: BUPIVACAINE 0.5%/EPINEPHRINE 0.9 MG (30.9 ML) INJECTION (13:16)
--- NOTE | 2025-04-17 13:25 | W.PM.ENTPROC ---
Procedure Note Date of procedure: 04/17/25 Procedure: Preop diagnosis nasal obstruction, bilateral inferior turbinate hypertrophy unresponsive to inhaled nasal steroid sprays Postoperative diagnosis same Procedure intramural cautery inferior turbinates bilateral Under general trach anesthesia patient was prepped and draped usual fashion. The nose was decongested with pledgets and then injected. The turbinate Wand was lubricated with a saline gel and then cautery the anterior head inferior 10% of the right inferior turbinate was cauterized intramurally. This was repeated on the left side in identical fashion. This was done in a conservative manner. The patient procedure well was taken recovery in satisfactory condition. Blood loss was 5 mL. Surgeon: Billy Tavarez MD
--- NOTE | 2025-04-17 13:44 | P.ANES_ITS ---
Anesthesia Charges Start Date/Time Anesthesia Start Date: 04/17/25 Anesthesia Start Time: 13:01 Stop Date/Time Anesthesia Stop Date: 04/17/25 Anesthesia Stop Time: 13:40 Coding CPT Codes CPT Codes: ANESTH NOSE/SINUS SURGERY - 59826 ([id number]) QK - REGISTERED REPRESENTATIVE 2-4 CNCRNT ANES PROC, QX - MANAGER TERMINAL SVC W/ MD MED DIRECTION, P2 - PATIENT W/MILD SYST DISEASE
--- NOTE | 2025-04-17 13:44 | W.ANESCHARGE ---
Anesthesia Charges Start Date/Time Anesthesia Start Date: 04/17/25 Anesthesia Start Time: 13:01 Stop Date/Time Anesthesia Stop Date: 04/17/25 Anesthesia Stop Time: 13:40 Coding CPT Codes CPT Codes: ANESTH NOSE/SINUS SURGERY - 34806 ([id number]) QK - PSYCHIATRIC CLINICAL NURSE SPECIALIST 2-4 CNCRNT ANES PROC, QX - MILK AND CREAM GRADER SVC W/ MD MED DIRECTION, P2 - PATIENT W/MILD SYST DISEASE
[2025-04-17] MEDS: LACTATED RINGERS 1000 ML 1,000 ML 50 ML IV (13:54)
== END 2025-04-17 15:16 | disposition home or self-care (01) ==
LOC: OR 11:22
PROVIDERS: PCP Family Medicine; Visit Provider Otolaryngology
PROC: (CPT 30802; principal; 2025-04-17 12:45)
DX: J34.3 Hypertrophy of nasal turbinates (principal); J34.89 Other specified disorders of nose and nasal sinuses
CPT/HCPCS: 30802; 00160; A9270; J0330; J1100; J2250; J2312; J2405; J2704; J3010; J7120